=== PATIENT | female | born 1985 | race African-American/Black ===

== ENCOUNTER 2020-06-06 08:00 | Outpatient (CLI) | payer OTHER ==
[2020-06-06 20:13] LABS: MUDS CUTOFF CONCENTRATIONS CUTOFF CONC BELOW:
[2020-06-06 20:16] LABS: BILIRUBIN,URINE NEGATIVE (NEGATIVE); GLUCOSE, URINE (UA) NEGATIVE (NEGATIVE); KETONES,URINE (UA) NEGATIVE (NEGATIVE); LEUKOCYTE ESTERASE, URINE NEGATIVE (NEGATIVE); NITRITE,URINE NEGATIVE (NEGATIVE); OCCULT BLOOD,URINE NEGATIVE (NEGATIVE); PROTEIN,URINE NEGATIVE (NEGATIVE); UROBILINOGEN,URINE 0.2 (NORMAL) E.U./dL (NORMAL)
[2020-06-06 20:17] LABS: CLARITY,URINE CLOUDY (CLEAR)
[2020-06-06 20:23] LABS: BACTERIA,URINE None Seen /HPF (None Seen); RBC,URINE None Seen /HPF (0-5); SQUAMOUS EPITHELIAL CELL,UR NONE SEEN (<= Few)
[2020-06-06 20:27] LABS: AMPHETAMINE SCREEN,URINE NEGATIVE (NEGATIVE); BENZODIAZEPINES SCREEN, URINE NEGATIVE (NEGATIVE); COCAINE SCREEN URINE NEGATIVE (NEGATIVE); METHADONE SCREEN, URINE NEGATIVE (NEGATIVE); METHAMPHETAMINES SCREEN, URINE NEGATIVE (NEGATIVE); OPIATE SCREEN, URINE NEGATIVE (NEGATIVE); OXYCODONE SCREEN, URINE NEGATIVE (NEGATIVE); PROPOXYPHENE SCREEN, URINE NEGATIVE (NEGATIVE); TRICYCLIC ANTIDEPRESSANT,URINE NEGATIVE (NEGATIVE)
== END 2020-06-06 23:59 | disposition home or self-care (01) ==
LOC: LAB.R 08:00
PROVIDERS: ATTEND Nurse Practitioner Obstetrics & Gynecology
DX: Z32.01 Encounter for pregnancy test, result positive (principal)
CPT/HCPCS: 80306; 81001; 87086

== ENCOUNTER 2020-06-20 08:00 | Outpatient (CLI) | payer OTHER ==
--- NOTE | 2020-06-21 05:27 | Ultrasound Report ---
PROCEDURE: OB First Trimester INDICATIONS: POSITIVE TEST OUTSIDE/PRIOR DATING DATA: Last menstrual period (LMP): 06/12/2020. LMP-based estimated date of delivery (NAINA): 01/16/2021. First dating scan (date and location): 06/20/2020. Estimated date of delivery (NAINA) from first dating scan: 01/15/2021. TECHNIQUE: Real-time scanning was performed of the fetus and maternal pelvic organs, with image documentation. COMPARISON: None FINDINGS: Embryo: Single intrauterine gestational sac is seen containing pole measures 3.3 cm in length. The estimated gestational age is 10 weeks, 1 day. heart rate is 175 bpm. Normal-appearing yolk sac is also seen. No evidence of perigestational hemorrhage. Measurement variability in dating: +/- 4 weeks by LMP, +/- 7 days by mean sac diameter (use before 6 weeks gestation if crown-rump length not able to be measured), +/- 5 days by crown-rump length (6-12 weeks gestation). Maternal organs: Ovaries are visualized. A 4.7 x 3.9 x 3.9 cm corpus luteal cyst is seen in right ov natalia.. IMPRESSION: 1. Single live intrauterine with fetus and yolk sac seen. heart rate is 175 bpm. No g ross perigestational hemorrhage. 2. 4.7 x 3.9 x 3.9 cm right corpus luteal cyst as above. Reviewed by: Hayden Barnett MD on 06/20/2020 9:30 AM PST Approved by: Hayden Barnett MD on 06/20/2020 9:30 AM PST Station ID: [id number]
== END 2020-06-20 08:01 | disposition home or self-care (01) ==
LOC: DI 08:00
PROVIDERS: ATTEND Nurse Practitioner Obstetrics & Gynecology
DX: O34.81 Maternal care for other abnormalities of pelvic organs, first trimester (principal); N83.11 Corpus luteum cyst of right ovary; Z3A.10 10 weeks gestation of pregnancy

== ENCOUNTER 2020-06-25 08:00 | Outpatient (CLI) | payer OTHER ==
[2020-06-25 22:09] LABS: TRICHOMONAS VAGINALIS DNA NEGATIVE (NEGATIVE)
== END 2020-06-25 23:59 | disposition home or self-care (01) ==
LOC: LAB.R 08:00
PROVIDERS: ATTEND Nurse Practitioner Obstetrics & Gynecology
DX: Z11.3 Encounter for screening for infections with a predominantly sexual mode of transmission (principal)
CPT/HCPCS: 87491; 87591; 87661

== ENCOUNTER 2020-07-11 08:00 | Outpatient (CLI) | payer OTHER ==
[2020-07-11 18:34] LABS: BASOPHILS % (AUTO) 0.3 %; EOSINOPHILS # (AUTO) 0.1 10^3/uL (0.0-0.7); EOSINOPHILS % (AUTO) 1.1 %; HCT - HEMATOCRIT 34.2 % (37.0-47.0); HGB - HEMOGLOBIN 10.8 g/dL (12.0-16.0); LYMPHOCYTES # (AUTO) 1.6 10^3/uL (1.5-3.5); LYMPHOCYTES % (AUTO) 23.5 %; MEAN CORPUSCULAR HEMOGLOBIN 26.9 pg (27.0-31.0); MEAN CORPUSCULAR HGB CONC 31.6 g/dL (32.0-36.0); MEAN CORPUSCULAR VOLUME 85.3 fL (81.0-99.0); MEAN PLATELET VOLUME 12.5 fL (7.9-10.8); MONOCYTES # (AUTO) 0.4 10^3/uL (0.0-1.0); MONOCYTES % (AUTO) 5.9 %; NEUTROPHILS # (AUTO) 4.6 10^3/uL (1.5-6.6); NEUTROPHILS % (AUTO) 68.9 %; PLT - PLATELET COUNT 191 10^3/uL (130-450); RED BLOOD COUNT 4.01 10^6/uL (4.20-5.40); RED CELL DISTRIBUTION WIDTH 14.1 % (12.0-15.0); WHITE BLOOD COUNT 6.6 x10^3/uL (4.8-10.8)
[2020-07-12 07:16] LABS: HIV AG/AB 4TH GEN NON-REACTIVE (NON-REACTIVE)
[2020-07-12 13:11] LABS: HEPATITIS B SURFACE ANTIGEN NON-REACTIVE (NON-REACTIVE); HEPATITIS C ANTIBODY NON-REACTIVE (NON-REACTIVE)
== END 2020-07-11 23:59 | disposition home or self-care (01) ==
LOC: LAB.WCP 08:00
PROVIDERS: ATTEND Nurse Practitioner Obstetrics & Gynecology
DX: Z36.89 Encounter for other specified antenatal screening (principal); Z11.3 Encounter for screening for infections with a predominantly sexual mode of transmission
CPT/HCPCS: 36415; 85025; 86592; 86762; 86787; 86803; 86850; 86900; 86901; 87086; 87340; 87389

== ENCOUNTER 2020-09-02 15:17 | Outpatient (CLI) | payer OTHER ==
--- NOTE | 2020-09-03 14:39 | Ultrasound Report ---
PROCEDURE: OB Detailed Eval INDICATIONS: SCREENING OUTSIDE/PRIOR DATING DATA: Last menstrual period (LMP): 04/11/20. LMP-based estimated date of delivery (NAINA): 01/16/21. First dating scan (date and location): 06/20/20. Estimated date of delivery (NAINA) from first dating scan: 01/15/21. Provider noted NAINA is 01/16/21, with that date used for data behow. TECHNIQUE: Real-time scanning was performed of the fetus, with image documentation and biometric measurements. COMPARISON: OB ultrasound 06/20/20 FINDINGS: General: A single living intrauterine gestation is present. Presentation: Variable Placenta: Placental position is anterior, without previa. Amniotic fluid index: 19.3 cm, 88th percentile for gestational age. Largest pocket 6.5cm. heart rate: 157 beats per minute. Maternal cervical canal: 4.0 cm long; normal length is 2.5 cm or more. biometrics: Biparietal diameter: 4.8 cm 20 wqeeks 4 days Head circumference: 18.2 cm 20 weeks 4 days Abdominal circumference: 15.5 cm 20 weeks 5 days Femur length: 3.3 cm 20 weeks 5 days Estimated gestational age from initial scan: 20 weeks 4 days Composite gestational age from present scan: 20 weeks 4 days Estimated weight and percentile: 359g 41st percentile Measurement variability in biometric dating: +/- 10 days from 12-20 weeks gestation, +/- 2 weeks from 20-30 weeks gestation, +/- 3 weeks at 30 weeks gestation or later. Anatomic survey: Neuro: Ventricles are normal at less than 10 mm. Cisterna magna is normal at 3-11 mm. Cerebellum i s normal in size and morphology. Nuchal skin fold: Normal at less than 6 mm between 14 and 20 weeks gestational age. Face: Nose and lips, facial profile are normal. Spine: No evidence for spina bifida. Heart: 4-chambered heart is present, with normal ventricular outflow tracts. Diaphragm: Diaphragm is intact. Stomach: Left-sided stomach is present. Kidneys: No hydronephrosis. Normal is less than 5 mm in 2nd trimester, less than 7 mm in 3rd trimester. Cord: 3 vessel cord has orthotopic insertion. Bladder: Normal in size. Extremities: All 4 extremities are visualized. Other: Right ovarian cysts measures 2.4 x 1.6 x 2.4 cm. IMPRESSION: 1. Single live intrauterine . 2. Anatomy is within normal limits. Reviewed by: Hawa Johnson MD on 09/03/2020 1:38 PM TING Approved by: Hawa Johnson MD on 09/03/2020 1:38 PM TING Station ID: [id number]
== END 2020-09-02 15:18 | disposition home or self-care (01) ==
LOC: DI 15:17
PROVIDERS: ATTEND Nurse Practitioner Obstetrics & Gynecology
DX: Z34.90 Encounter for supervision of normal pregnancy, unspecified, unspecified trimester (principal); Z36.89 Encounter for other specified antenatal screening

== ENCOUNTER 2020-10-24 08:00 | Outpatient (CLI) | payer OTHER ==
[2020-10-24 17:42] LABS: HCT - HEMATOCRIT 29.7 % (37.0-47.0); HGB - HEMOGLOBIN 9.1 g/dL (12.0-16.0); MEAN CORPUSCULAR HEMOGLOBIN 25.9 pg (27.0-31.0); MEAN CORPUSCULAR HGB CONC 30.6 g/dL (32.0-36.0); MEAN CORPUSCULAR VOLUME 84.4 fL (81.0-99.0); MEAN PLATELET VOLUME 12.3 fL (7.9-10.8); RED BLOOD COUNT 3.52 10^6/uL (4.20-5.40); RED CELL DISTRIBUTION WIDTH 15.4 % (12.0-15.0); WHITE BLOOD COUNT 7.7 x10^3/uL (4.8-10.8)
== END 2020-10-24 23:59 | disposition home or self-care (01) ==
LOC: LAB.WCP 08:00
PROVIDERS: ATTEND Nurse Practitioner Obstetrics & Gynecology
DX: Z34.90 Encounter for supervision of normal pregnancy, unspecified, unspecified trimester (principal); Z36.89 Encounter for other specified antenatal screening
CPT/HCPCS: 36415; 82950; 85027

== ENCOUNTER 2020-10-30 09:56 | Outpatient (CLI) | payer OTHER ==
[2020-10-30] MEDS ORDERED: FERRIC GLUCONATE 125 MG in SODIUM CHLORIDE 0.9% 100ML 100 ML IV ONE (10:30)
[2020-10-30 10:38] VITALS: BP 129/76
== END 2020-10-30 12:16 | disposition home or self-care (01) ==
LOC: WFO 09:56 → FBP 09:59 → WFO 12:16
PROVIDERS: ATTEND Obstetrics & Gynecology
DX: O99.019 Anemia complicating pregnancy, unspecified trimester (principal); D64.9 Anemia, unspecified; Z3A.00 Weeks of gestation of pregnancy not specified
CPT/HCPCS: 96365; J2916

== ENCOUNTER 2020-11-17 13:40 | Outpatient (CLI) | payer OTHER ==
[2020-11-17 14:07] LABS: HGB - HEMOGLOBIN 9.8 g/dL (12.0-16.0); MEAN CORPUSCULAR HEMOGLOBIN 25.6 pg (27.0-31.0); MEAN CORPUSCULAR HGB CONC 31.6 g/dL (32.0-36.0); MEAN CORPUSCULAR VOLUME 80.9 fL (81.0-99.0); RED BLOOD COUNT 3.83 10^6/uL (4.20-5.40); RED CELL DISTRIBUTION WIDTH 16.9 % (12.0-15.0)
== END 2020-11-17 13:41 | disposition home or self-care (01) ==
LOC: LAB 13:40
PROVIDERS: ATTEND Advanced Practice Midwife
DX: O99.019 Anemia complicating pregnancy, unspecified trimester (principal)
CPT/HCPCS: 36415; 85027

== ENCOUNTER 2020-12-03 09:33 | Outpatient (CLI) | payer OTHER ==
[2020-12-03] MEDS ORDERED: FERRIC GLUCONATE 125 MG in SODIUM CHLORIDE 0.9% 100ML 100 ML IV ONE (10:30)
[2020-12-03 11:21] VITALS: BP 127/74
== END 2020-12-03 11:34 | disposition home or self-care (01) ==
LOC: FBP 09:33 → WFO 09:33
PROVIDERS: ATTEND Nurse Practitioner Obstetrics & Gynecology
DX: O99.019 Anemia complicating pregnancy, unspecified trimester (principal); Z3A.00 Weeks of gestation of pregnancy not specified; D64.9 Anemia, unspecified
CPT/HCPCS: 96365; J2916

== ENCOUNTER 2020-12-23 08:00 | Outpatient (CLI) | payer OTHER | END 2020-12-23 23:59 | disposition home or self-care (01) | LOC: LAB 08:00 | PROVIDERS: ATTEND Nurse Practitioner Obstetrics & Gynecology | DX: Z34.90 Encounter for supervision of normal pregnancy, unspecified, unspecified trimester (principal) | CPT/HCPCS: 87797 ==

== ENCOUNTER 2020-12-23 10:56 | Outpatient (CLI) | payer OTHER ==
[2020-12-23 11:22] LABS: HCT - HEMATOCRIT 30.8 % (37.0-47.0); HGB - HEMOGLOBIN 9.5 g/dL (12.0-16.0); MEAN CORPUSCULAR HEMOGLOBIN 24.5 pg (27.0-31.0); MEAN CORPUSCULAR HGB CONC 30.8 g/dL (32.0-36.0); MEAN CORPUSCULAR VOLUME 79.4 fL (81.0-99.0); MEAN PLATELET VOLUME 10.8 fL (7.9-10.8); RED BLOOD COUNT 3.88 10^6/uL (4.20-5.40); RED CELL DISTRIBUTION WIDTH 18.5 % (12.0-15.0); WHITE BLOOD COUNT 7.8 x10^3/uL (4.8-10.8)
[2020-12-23 11:36] LABS: CREATININE,URINE 64.8 mg/dL
[2020-12-23 11:38] LABS: ALBUMIN 2.9 g/dL (3.2-5.5); ALBUMIN/GLOBULIN RATIO 0.8 (1.0-2.2); BILIRUBIN,TOTAL 0.3 mg/dL (0.2-1.0); CALCIUM 9.3 mg/dL (8.5-10.3); CREATININE 0.6 mg/dL (0.4-1.0); POTASSIUM 4.5 mmol/L (3.5-5.0); TOTAL PROTEIN 6.6 g/dL (6.7-8.2)
[2020-12-23 11:47] LABS: TOTAL PROTEIN,URINE TIMED < 6 mg/dL
[2020-12-23 12:29] VITALS: BP 128/68
--- NOTE | 2020-12-23 22:39 | PROVIDER PROGRESS NOTE ---
- HPI Chief Complaint: Other (swelling/ rule out preeclampsia) Current : Current EDU 01/16/21 Gestation 36 Weeks and 4 Days 4 Para 3 Vital Signs Heart Rate 81 12/23/20 12:25 Respiratory Rate 18 12/23/20 12:25 Blood Pressure 128/68 12/23/20 12:25 O2 Saturation 99 12/23/20 12:25 Temperature Heart Rate 81 12/23/20 12:25 Respiratory Rate 18 12/23/20 12:25 Blood Pressure 128/68 12/23/20 12:25 O2 Saturation 99 12/23/20 12:25 - Procedures OB Procedure Performed: NST NST Procedure: NST Procedure Start Date 12/23/20 Start Time 12:00 Stop Time 12:30 Vibroacoustic Stimulation Used No Patient States Movement Yes - Plan Plan: Antonia presented to L&D triage following her appointment. She reports significant swelling to her hands and feet. She says that she really overworked herself cleaning her bathroom and sorting her son's hair yesterday. She denies CARTER or RUQ pain, or visual changes Denies LOF or VB and endorses movement O: BPs wnl P:C not detectable ALT/AST wnl Hct 30.8% NSt perform date: 12/22/2020 NST read date 12/22/2020 Impression: reactive A: 35yo at 36.4wks Normal course P: Encouraged more rest and elevation of extremities Discussed anemia in Continue with routine care
== END 2020-12-23 13:15 | disposition home or self-care (01) ==
LOC: WFO 10:56 → FBP 11:27 → WFO 13:15
PROVIDERS: ATTEND Advanced Practice Midwife
DX: O12.03 Gestational edema, third trimester (principal); O26.893 Other specified pregnancy related conditions, third trimester; R03.0 Elevated blood-pressure reading, without diagnosis of hypertension; Z3A.36 36 weeks gestation of pregnancy
CPT/HCPCS: 36415; 59025; 80053; 82570; 84156; 85027; 99213

== ENCOUNTER 2020-12-30 10:14 | Outpatient (CLI) | payer OTHER ==
[2020-12-30 10:52] LABS: CREATININE,URINE 56.8 mg/dL
[2020-12-30 11:04] LABS: TOTAL PROTEIN,URINE TIMED < 6 mg/dL
[2020-12-30 11:30] LABS: BASOPHILS % (AUTO) 0.3 %; EOSINOPHILS # (AUTO) 0.1 10^3/uL (0.0-0.7); EOSINOPHILS % (AUTO) 1.3 %; HCT - HEMATOCRIT 32.3 % (37.0-47.0); HGB - HEMOGLOBIN 9.8 g/dL (12.0-16.0); LYMPHOCYTES # (AUTO) 1.4 10^3/uL (1.5-3.5); LYMPHOCYTES % (AUTO) 18.9 %; MEAN CORPUSCULAR HEMOGLOBIN 24.1 pg (27.0-31.0); MEAN CORPUSCULAR HGB CONC 30.3 g/dL (32.0-36.0); MEAN CORPUSCULAR VOLUME 79.4 fL (81.0-99.0); MONOCYTES # (AUTO) 0.6 10^3/uL (0.0-1.0); MONOCYTES % (AUTO) 8.5 %; NEUTROPHILS % (AUTO) 70.2 %; NRBC ABSOLUTE COUNT (AUTO) 0.02 x10^3/uL; NUCLEATED RED BLOOD CELLS AUTO 0.3 /100WBC; PLT - PLATELET COUNT 214 10^3/uL (130-450); RED BLOOD COUNT 4.07 10^6/uL (4.20-5.40); RED CELL DISTRIBUTION WIDTH 18.7 % (12.0-15.0); WHITE BLOOD COUNT 7.2 x10^3/uL (4.8-10.8)
[2020-12-30 11:43] LABS: ALBUMIN 2.9 g/dL (3.2-5.5); ALBUMIN/GLOBULIN RATIO 0.8 (1.0-2.2); BILIRUBIN,TOTAL 0.5 mg/dL (0.2-1.0); CALCIUM 8.8 mg/dL (8.5-10.3); CREATININE 0.6 mg/dL (0.4-1.0); POTASSIUM 4.1 mmol/L (3.5-5.0); TOTAL PROTEIN 6.6 g/dL (6.7-8.2)
[2020-12-30] MEDS ORDERED: FERRIC GLUCONATE 125 MG in SODIUM CHLORIDE 0.9% 100ML 100 ML IV ONE (11:45)
[2020-12-30 13:05] VITALS: BP 125/70
--- NOTE | 2021-01-01 10:41 | PROVIDER PROGRESS NOTE ---
- HPI Chief Complaint: Hypertension/PIH Current : Current EDU 01/16/21 Gestation 37 Weeks and 4 Days 4 Para 3 Vital Signs Heart Rate 84 12/30/20 10:31 Respiratory Rate 16 12/30/20 10:31 Blood Pressure 135/77 H 12/30/20 10:31 O2 Saturation 100 12/30/20 10:31 Temperature 36.8 C 12/30/20 11:46 Heart Rate 85 12/30/20 12:35 Respiratory Rate 18 12/30/20 12:35 Blood Pressure 125/70 12/30/20 12:35 O2 Saturation 100 12/30/20 12:35 - Procedures OB Procedure Performed: NST Diagnosis/Indication for NST: Gestational Hypertension NST Procedure: NST Procedure Start Date 12/30/20 Start Time 10:22 Stop Time 12:40 Vibroacoustic Stimulation Used No Patient States Movement Yes - Plan Plan: Antonia presents today following her routine office visit secondary to elevated blood pressure which diagnoses gestational hypertension. She denies headache, visual disturbances, RUQ or epigastric pain. She reports intermittent, mild edema to her hands and feet bilaterally which has not changed in the past several days. She has also been experiencing fatigue and SOB with exertion and her repeat CBC revealed persistent anemia. NST performed 01/01/2021 NST read 01/01/2021 FHR baseling 135, moderate variability, + accels, no decels No contractions appreciated via tocometry Normocephalic, atraumatic, heart RRR w/o M/G/R, abdomen gravid, soft, nontender. Bilateral LE's trace edema. Mood is good. Serial BPs normotensive. Labs: Hgb 9.8 Hct 32.2 PLT 214 Creatinine 0.6 AST 15 ALT 10 Urine protein/creatinine ratio -not reportable Iron infusion completed and pt tolerated well secondary to persistent anemia and fatigue. Assessment: 35yo @ 37.3wks gestation Gestational hypertension Fatigue Iron deficiency anemia FHR Category I Plan: Iron infusion completed. Reviewed induction of labor at 38.0wks and pt agrees to plan. Scheduled 01/02/2021 @ 0800. Reviewed warning s/sx and precautions and when to present. Reviewed gestational HTN and s/sx of preeclampsia and when to present urgently. Pt has emergency contact number. She verbalized understanding and denies further questions or concerns at this time. FINAL DIAGNOSIS: Gestational hypertension Iron deficiency anemia Fatigue
== END 2020-12-30 12:45 | disposition home or self-care (01) ==
LOC: WFO 10:14 → FBP 10:18 → WFO 12:45
PROVIDERS: ATTEND Nurse Practitioner Obstetrics & Gynecology
DX: O13.3 Gestational [pregnancy-induced] hypertension without significant proteinuria, third trimester (principal); Z3A.37 37 weeks gestation of pregnancy; O99.013 Anemia complicating pregnancy, third trimester; D50.9 Iron deficiency anemia, unspecified
CPT/HCPCS: 36415; 59025; 80053; 82570; 84156; 85025; 96365; J2916

== ENCOUNTER 2021-01-02 08:18 | Inpatient (IN) | payer OTHER ==
[2021-01-02] MEDS ORDERED: LIDOCAINE-MPF 1% 30 ML VIAL ID PRN (08:59)
[2021-01-02] MEDS ORDERED: CARBOPROST TROMETHAMINE 250 MCG/ML AMP IM PRN (08:59)
[2021-01-02] MEDS ORDERED: miSOPROStoL 200 MCG TABLET BC PRN (08:59)
[2021-01-02] MEDS ORDERED: OXYTOCIN 10 UNIT/ML VIAL IM PRN (08:59)
[2021-01-02] MEDS ORDERED: METHYLERGONOVINE 0.2 MG/ML VIAL IM PRN (08:59)
[2021-01-02] MEDS ORDERED: SODIUM CHLORIDE FLUSH 0.9% 10 ML SYRINGE IVP PRN (08:59)
[2021-01-02] MEDS ORDERED: ONDANSETRON 4 MG/2 ML VIAL IVP PRN (08:59)
[2021-01-02] MEDS ORDERED: TRANEXAMIC ACID IN NACL 1,000 MG/100 ML BAG IV PRN (08:59)
[2021-01-02] MEDS ORDERED: OXYTOCIN/SODIUM CHLORIDE 500 ML IV PRN (08:59)
[2021-01-02] MEDS ORDERED: LACTATED RINGERS 1,000 ML IV SCH (09:00)
[2021-01-02] MEDS ORDERED: miSOPROStoL 100 MCG TABLET BC SCH (09:00)
[2021-01-02] MEDS ORDERED: SODIUM CHLORIDE FLUSH 0.9% 10 ML SYRINGE IVP SCH (09:00)
--- NOTE | 2021-01-02 09:33 | HISTORY & PHYSICAL EXAMINATION ---
Admit History - Visit Reason Visit Reason: Other - : 4 Parity: 3 Premature: 0 Ectopic: 0 : 0 Care: positive: [facility] Risk/History: positive: None Complications This : positive: Other Smoking Status: Never smoker - Mother's Labs Mother's Blood Type: positive: O Mother's RH: positive: Positive GBS: positive: Group B Step Negative Rubella Status: positive: Immune Meds/Allgy - Allergies Allergies/Adverse Reactions: Allergies Allergy/AdvReac Type Severity Reaction Status Date / Time No Known Drug Allergies Allergy Verified 12/03/20 09:56 Review of Systems - Constitutional Constitutional: denies: Fatigue, Fever, Chills, Malaise - Eyes Eyes: denies: Blurred vision, Spots in vision, Dipolpia - Cardiovascular Cariovascular: denies: Irregular heart rate, Palpitations, Chest pain, Edema, Lightheadedness - Respiratory Respiratory: reports: SOB with exertion. denies: Cough, Sputum production, Wheezing, Hemoptysis, SOB at rest, Stridor, Pleuritic pain - Gastrointestinal Gastrointestinal: denies: Abdominal pain, Constipation, Diarrhea, Change in bowel habits, Nausea, Vomiting - Genitourinary Genitourinary: denies: Dysuria, Frequency, Urgency - Integumentary Integumentary: denies: Rash, Pruritis - Neurological Neurological: denies: Headache Physical - Abdominal Exam Contraction Frequency (min/apart): occasional Contraction Intensity: positive: Mild Uterine Resting Tone: positive: Soft - Monitoring Heart Rate Baseline: 150 Strip Review: positive: Category I - Presentation Presentation: positive: Vertex - Vaginal Exam Membranes: positive: Membranes intact Dilation (in cm): 3 Effacement (%): 75 Station: positive: -2 Cervical Position: positive: Posterior - Speculum Exam Speculum Exam Performed: positive: No Plan for Labor - Plan For Labor I expect patient to be DC'd or transferred within 96 hours.: Yes Plan for Labor: Antonia is a 35yo @ 38.0wks gestation by LMP c/w 10.1wk U/S who presents today for medical induction of labor secondary to gestational hypertension. She denies vaginal bleeding, leakage of fluid or contractions. She reports +FM. She denies CARTER, visual disturbances, RUQ or epigastric pain and reports mild edema to hands and feel bilaterally. She has been a patient of [facility] through the duration of her which has been complicated by persistent iron deficiency anemia and recent diagnosis of gestational hypertension which has remained mild with only mildly elevated blood pressures intermittently. She is currently normotensive. Her will be supporting her by phone as he is at home taking care of their 3 children. She intends an unmedicated delivery. Dating criteria: LMP 04/11/2020 Initial U/S @ 10.1wks c/w LMP dating Serial exams agree OB Hx: G1: 01/16/2008, @ 40wks, epidural, Labor <12hrs, Male, 6lbs 10oz G2: 09/06/2009, @ 40wks, unmedicated, Labor <12hrs, female 6lbs 10oz G3: 01/17/2018, @ 41wks, unmedicated, male, 7lbs 6 oz - IOL G4: current Medications: PNV, FeSO4 Allergies: NKDA PMHx: unremarkable Surgical Hx: none Social Hx: Never smoker. 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 Family Hx: HTN - mother; diabetes - mother; Pancreatic cancer - PGM; psychiatric care - PGM, Uncle course: PROBLEMS 1.Gestational hypertension 2. Anemia of - CBC 10/24- 29.7. iron infusion 10/30/2020. CBC 11/17- 31.0. Second Fe infusion 12/03. CBC 8/- 30.8. Third iron infusion 12/30-CBC 9.8/32.3. Today Initial ultrasound 06/20/2020 @ 10.1wks gestation c/w LMP dating. NAINA 01/16/2021 by LMP. U/S performed by [facility]. O pos/Rubella immune VZV: immune Genetic testing: declined FAS: FAS WNL. Anterior placenta, no previa. 3VC. Size c/w dating (EFW 41%tile). Glucola 129 Influenza: received outside clinic this season TDAP 11/17/2020 GBS at 36.4 weeks- Negative HSV: denies in self and partner Breast pump Rx 10/29/2020 MOD: Anticipate ; desires unmedicated delivery (hx rapid dilation and was told to hold her baby in - she wants to ensure this does not happen this time as it felt very traumatic for her; ; Experimental Technician. Boy- stanley. GIRL: Denise. pp contraception: Nexplanon pap: 07/24/2019 pap neg (No HPV ran) - next pap due 07/2022 Physical Exam: Normocephalic, atraumatic Heart RRR w/o M/G/R Lungs CTAB Abdomen gravid, soft, nontender EFW 2900g SVE 3/75/-2, posterior, soft. Vertex. Intact membranes FHR baseline 150, moderate variability, + accels, no decels Contractions palpate mild occasionally and pt does not appreciate contractions. Bilateral LE's trace edema Mood is good Assessment: 35yo @ 38.0wks gestation Gestational hypertension Anemia complicating GBS negative FHR Category I Plan: Admit for medical induction of labor Continuous monitoring Repeat hypertension labs now to ensure absence of preeclampsia Pt request misoprostol to start - she is hoping to avoid pitocin if possible secondary to intending unmedicated delivery. 1 dose 25mcg BC misoprostol initiated. Plan AROM in 4 hours PRN. Anticipate . Pt verbalized understanding and agrees to above plan. She denies further questions or concerns at this time.
[2021-01-02 09:45] LABS: BASOPHILS % (AUTO) 0.3 %; EOSINOPHILS # (AUTO) 0.1 10^3/uL (0.0-0.7); EOSINOPHILS % (AUTO) 1.2 %; HCT - HEMATOCRIT 30.9 % (37.0-47.0); HGB - HEMOGLOBIN 9.6 g/dL (12.0-16.0); LYMPHOCYTES # (AUTO) 1.2 10^3/uL (1.5-3.5); LYMPHOCYTES % (AUTO) 16.4 %; MEAN CORPUSCULAR HEMOGLOBIN 24.6 pg (27.0-31.0); MEAN CORPUSCULAR HGB CONC 31.1 g/dL (32.0-36.0); MEAN CORPUSCULAR VOLUME 79.2 fL (81.0-99.0); MEAN PLATELET VOLUME 11.5 fL (7.9-10.8); MONOCYTES # (AUTO) 0.3 10^3/uL (0.0-1.0); MONOCYTES % (AUTO) 4.3 %; NEUTROPHILS # (AUTO) 5.7 10^3/uL (1.5-6.6); NEUTROPHILS % (AUTO) 77.1 %; NRBC ABSOLUTE COUNT (AUTO) 0.03 x10^3/uL; NUCLEATED RED BLOOD CELLS AUTO 0.4 /100WBC; PLT - PLATELET COUNT 221 10^3/uL (130-450); RED CELL DISTRIBUTION WIDTH 19.4 % (12.0-15.0); WHITE BLOOD COUNT 7.4 x10^3/uL (4.8-10.8)
[2021-01-02 09:57] LABS: ALBUMIN 2.8 g/dL (3.2-5.5); ALBUMIN/GLOBULIN RATIO 0.7 (1.0-2.2); BILIRUBIN,TOTAL 0.6 mg/dL (0.2-1.0); CALCIUM 8.8 mg/dL (8.5-10.3); CREATININE 0.6 mg/dL (0.4-1.0); POTASSIUM 3.7 mmol/L (3.5-5.0); TOTAL PROTEIN 6.8 g/dL (6.7-8.2)
[2021-01-02 12:46] LABS: CREATININE,URINE 261.3 mg/dL
--- NOTE | 2021-01-02 14:10 | PROVIDER PROGRESS NOTE ---
Labor Progress Note - Uterine Monitoring Uterine Monitoring Mode: positive: External toco Contraction Frequency (min/apart): 4-7 Contraction Intensity: positive: Moderate Uterine Resting Tone: positive: Soft - Monitoring Monitor Mode: positive: External ultrasound Heart Rate Baseline: 145 Heart Rate Variability: positive: Moderate (6-25 bmp) Accelerations: positive: Present, 15x15 Decelerations: positive: None Strip Review: positive: Category I - Vaginal Exam Dilation (in cm): 4 Effacement (%): 80 Station: -1 Cervical Position: Midposition - Labor Progress Note Labor Progress Note/Additional Text: S: Feeling increased discomfort with contractions and is rating them 4-5/10 on a pain scale. She is currently sitting up on the bed and wishes to move to the bedside on the labor ball at this time. Denies CARTER, visual disturbances, RUQ or epigastric pain. Her mood is good. O: FHR baseline 145, moderate variability, + accels, no decels Contractions palpate moderate every 4-7 minutes with soft resting tone SVE 4/80/-1, midposition, soft. Vertex. AROM at large amount of clear fluid at 1400 BP normotensive; PIH labs WNL (Pr/cr ratio 0) A: 35yo @ 38.0wks gestation Early labor Gestational HTN Iron deficiency anemia FHR Category I GBS neg P: Continuous monitoring Continue medical IOL secondary to gestational HTN. Encouraged ambulation and position changes. Initiate Pitocin in 4 hours if SVE unchanged. Jacuzzi PRN. Nitrous oxide PRN. Anticipate .
[2021-01-02] MEDS ORDERED: WITCH HAZEL/GLYCERIN 1 PAD TOP PRN (18:03)
[2021-01-02] MEDS ORDERED: HYDROCORTISONE 1% CREAM 28 GM TUBE PR PRN (18:03)
--- NOTE | 2021-01-02 18:09 | DELIVERY NOTE ---
Delivery Note - Labor Labor: positive: Augmented by ARM - Infant Delivery Method Delivery Method: positive: Spontaneous vaginal delivery - Cervical Ripening Method Cervical Ripening Method: positive: Misoprostil - Presentation Presentation: positive: Vertex, OA - occiput anterior - Nuchal Cord Nuchal Cord: positive: None - Amniotic Fluid Description Amniotic Fluid Description: positive: Clear - Episiotomy Type Episiotomy Type: positive: None - Laceration Laceration: positive: None - Delivery Outcome Delivery Outcome: positive: Livebirth - [place]: positive: Placed in direct skin contact with mother, Stimulated, Warmed, Salol used sex: positive: Female - Cord Cord: positive: 3 vessels - Placenta Placenta: positive: Intact, Spontaneous - Estimated Blood Loss Estimated Blood Loss (in cc): 100 - Post Delivery Events Post Delivery Events: positive: No post delivery events - Delivery Comments (Free Text/Narrative) Delivery Comments (Free Text/Narrative): Labor: This 35yo @ 38.0wks gestation by LMP c/w 10.1wk U/S presented on 01/02/2021 @ 0800 for medical induction of labor secondary to gestational hypertension. Cervix was 3/75/-2, posterior and vertex. FHR pattern demonstrated Category I pattern throughout labor. She received 1 dose of 25mcg BC misoprostol. AROM occurred at 1400 and was noted to be a large amount of clear fluid. Pt progressed to c/c/+2 @ 1736 with onset of pushing. : Normal of viable female infant on 01/02/2021 @ 1743. No nuchal cord. The was placed on maternal abdomen, stimulated, dried, and placed skin to skin. 's were 8/9 at 1 and 5 minutes respectively. Pitocin administered via IV for hemostasis. The umbilical cord was allowed to stop pulsating at which time it was doubly clamped by CNM and cut by patient. 3VC. Cord blood was obtained. Fundal massage and gentle cord traction applied for active management of the third stage. Placenta delivered spontaneously and intact at 1751. EBL 100mL. Fourth Stage: Uterine fundus firm and there is no excessive bleeding. The perineum, vagina, and cervix were inspected and noted to be intact. Family bonding well. Both mother and baby were left in stable condition.
[2021-01-02] MEDS: IBUPROFEN 800 MG TABLET PO SCH (18:38)
[2021-01-02] MEDS: ACETAMINOPHEN 500 MG TABLET PO SCH (18:38)
[2021-01-02] MEDS: DOCUSATE SODIUM 100 MG CAPSULE PO SCH (21:35)
[2021-01-03] MEDS: IBUPROFEN 800 MG TABLET PO SCH ×4 (00:38→18:36)
[2021-01-03] MEDS: ACETAMINOPHEN 500 MG TABLET PO SCH ×3 (02:37→18:36)
[2021-01-03] MEDS: DOCUSATE SODIUM 100 MG CAPSULE PO SCH ×2 (11:06→21:46)
--- NOTE | 2021-01-03 11:35 | PROVIDER PROGRESS NOTE ---
Subjective - Subjective Subjective: Progress Note: S: Bonding well with baby. She is without difficulty. Her bleeding is light and her pain is well controlled with oral medications. She is urinating without difficulty. She desires to be discharged home tomorrow morning rather than this evening secondary to transportation and her desire to rest as she has 3 excited children at home. O: BP 115-131/57-69; T 36.6, HR 84, RR 16 Heart RRR w/o M/G/R, lungs CTAB, abdomen soft and nontender with fundus firm at U, perineum intact, light lochia rubra, bilateral LE's trace edema, mood is good. A: 35yo -->P4 PPD#1 s/p TSVD viable female infant Gestational hypertension - resolved Normal recovery P: Continue routine care and medications. Evaluate for discharge home tomorrow morning. Pt verbalized understanding and denies further questions or concerns at this time. Objective - Vital Signs/Intake & Output Vital Signs: Vital Signs x48h Temp Pulse Resp BP Pulse Ox 01/03/21 07:52 36.6 C 84 16 117/62 98 01/03/21 05:27 36.7 C 70 19 127/69 100 Intake & Output: Intake & Output 12/31/20 01/01/21 01/02/21 01/03/21 23:59 23:59 23:59 23:59 Intake Total 700 600 Output Total 275 450 Balance 425 150 - Lab Results Fish Bones: 01/02/21 09:15 01/02/21 09:15 Other Labs: Lab Results x24hrs 01/02/21 Range/Units 12:15 Urine Creatinine 261.3 mg/dL Ur Total Protein Timed 12 mg/dL Protein/Creatinin Ratio 0.0 (<=0.2)
[2021-01-04] MEDS: IBUPROFEN 800 MG TABLET PO SCH ×2 (00:28→06:31)
[2021-01-04] MEDS: ACETAMINOPHEN 500 MG TABLET PO SCH ×2 (02:48→10:41)
--- NOTE | 2021-01-04 09:27 | DISCHARGE SUMMARY ---
Discharge Summary - HOSPITAL COURSE Hospital Course: Date of Admission: 01/02/2021 Date of Discharge: 01/04/2021 Diagnosis on Admission: 1. 35yo @ 38.0wks gestation 2. Gestational hypertension 3. Anemia complicating 4. GBS negative 5. FHR Category I Diagnosis on Discharge: 1. 35yo s/p TSVD viable female infant 2. Gestational hypertension - resolved 3. 4. Normal recovery Brief History: She is a patient of [facility] who presented on 01/02/2021 for medical induction of labor secondary to gestational hypertension. Cervical exam was 3/75/-2, posterior and vertex. She received 1 dose of 25mcg BC misoprostol followed by AROM which was noted to be a large amount of clear fluid for induction of labor. She progressed spontaneously to deliver a viable female on 01/02/2021 @ 1743. Apgars were 8 and 9 at 1 and 5 minutes respectively. EBL 100mL. Perineum intact. She has been doing well in her course. She has remained normotensive and asymptomatic through the entirety of her inpatient stay. She is ambulating and tolerating a regular diet. She is urinating without difficulty and her lochia is normal. Her pain is well controlled with oral medications. She is bonding well with her baby and without difficulty. Her mood is good and she desires to be discharged home today. She will be discharged home today on day #2 with instructions to continue taking her vitamin while and to continue taking ibuprofen and tylenol over the counter as needed for pain management. She will also continue taking her iron supplement orally as she is noted to be anemic and was symptomatic towards the end of her . She did receive and iron infusion 4 days prior to delivery and has historically responded well to this. She intends to follow up with myself at [facility] in 1 week for routine visit or sooner if needed. She has been given precautions to call if she has any worsening fevers, chills, abdominal pain, increased vaginal bleeding, or foul smelling vaginal lochia. She has also been given warning signs and symptoms of preeclampsia. She has the emergency contact number. She verbalizes understanding and agrees to above plan. She denies further questions or concerns at this time. - ALLERGIES Allergies/Adverse Reactions: Allergies Allergy/AdvReac Type Severity Reaction Status Date / Time No Known Drug Allergies Allergy Verified 12/03/20 09:56 - LABS Result Diagrams: 01/02/21 09:15 01/02/21 09:15
--- NOTE | 2021-01-04 09:28 | Discharge Plan ---
Discharge Plan Problem Reviewed?: Yes Disposition: Home, Self Care Condition: Good Diet: Regular Activity Restrictions: No Restrictions Shower Restrictions: No Driving Restrictions: No Weight Bearing: Full Weight No Smoking: If you smoke, Please STOP! Call for help. Follow-up with: Maryse Haro CNM, ARNP [Provider Admit Priv/Credential] -
[2021-01-04 10:19] VITALS: BP 128/57
[2021-01-04] MEDS: DOCUSATE SODIUM 100 MG CAPSULE PO SCH (10:41)
== END 2021-01-04 11:30 | disposition home or self-care (01) | DRG 807 ==
LOC: WFO 08:18 → FBP 08:20 → WFO 08:58 → FBP 08:59
PROVIDERS: ADMIT Nurse Practitioner Obstetrics & Gynecology; ATTEND Nurse Practitioner Obstetrics & Gynecology
PROC: 10E0XZZ Delivery of Products of Conception, External Approach (ICD-10-PCS; principal; 2021-01-02)
PROC: 10907ZC Drainage of Amniotic Fluid, Therapeutic from Products of Conception, Via Natural or Artificial Opening (ICD-10-PCS; 2021-01-02)
PROC: 3E0DXGC Introduction of Other Therapeutic Substance into Mouth and Pharynx, External Approach (ICD-10-PCS; 2021-01-02)
DX: O13.4 Gestational [pregnancy-induced] hypertension without significant proteinuria, complicating childbirth (principal); Z37.0 Single live birth; O99.02 Anemia complicating childbirth; D50.9 Iron deficiency anemia, unspecified; Z3A.38 38 weeks gestation of pregnancy; Z20.822 Contact with and (suspected) exposure to COVID-19
CPT/HCPCS: 36415; 80053; 82570; 84156; 85025; 86850; 86900; 86901; 87635; A9270; J7120

== ENCOUNTER 2021-04-17 11:28 | Outpatient (CLI) | payer OTHER | END 2021-04-17 23:59 | disposition home or self-care (01) | LOC: LAB.N 11:28 | PROVIDERS: ATTEND Family Medicine | DX: R05.9 Cough, unspecified (principal); Z20.822 Contact with and (suspected) exposure to COVID-19 | CPT/HCPCS: 87275; 87276 ==